=== PATIENT | male | born 1965 ===

== ENCOUNTER 2019-02-08 06:15 | Day surgery (SDC) | payer OTHER ==
[~2019-02-08 06:15] MED LIST: TENORMIN50 M1
[2019-02-08] MEDS ORDERED: TRAM1TAB98 PO (10:12)
[2019-02-08] MEDS ORDERED: DUI500 PO (10:12)
== END 2019-02-08 13:00 | disposition home or self-care (01) ==
LOC: CIR.AMB 06:15
DX: M23.322 Other meniscus derangements, posterior horn of medial meniscus, left knee (principal); M23.352 Other meniscus derangements, posterior horn of lateral meniscus, left knee; M65.862 Other synovitis and tenosynovitis, left lower leg